=== PATIENT | female | born 1990 | race Caucasian/White ===

== ENCOUNTER 2021-01-23 03:26 | Day surgery (SDC) | payer OTHER ==
[2021-01-23 03:50] VITALS: BMI 33.6
[2021-01-23] MEDS ORDERED: hydrALAZINE 20 MG/ML VIAL SLOW IVP PRN (04:35)
[2021-01-23] MEDS ORDERED: Betamet Acet/Betamet Na Ph 30 MG/5 ML VIAL IM SCH (08:00)
== END 2021-01-23 09:18 | disposition home health service (06) ==
LOC: CSHLD/OP 03:26
PROVIDERS: ATTEND Obstetrics & Gynecology
DX: O46.92 Antepartum hemorrhage, unspecified, second trimester (principal); O32.1XX0 Maternal care for breech presentation, not applicable or unspecified; Z3A.27 27 weeks gestation of pregnancy
CPT/HCPCS: 76815; 87480; 87510; 87660; 96372; 99284; J0702

== ENCOUNTER 2021-01-24 07:35 | Day surgery (SDC) | payer OTHER ==
[2021-01-24] MEDS ORDERED: Betamet Acet/Betamet Na Ph 30 MG/5 ML VIAL IM SCH (09:00)
== END 2021-01-24 08:18 | disposition home or self-care (01) ==
LOC: CSHLD/OP 07:35
PROVIDERS: ATTEND Obstetrics & Gynecology
DX: Z29.8 Encounter for other specified prophylactic measures (principal)
CPT/HCPCS: 96372; 99282

== ENCOUNTER 2021-03-23 05:29 | Inpatient (IN) | payer OTHER ==
[2021-03-23 05:48] VITALS: BMI 35.0
[2021-03-23] MEDS ORDERED: ceFAZolin 2 GM/Dextrose 50 ML IVPB ONE (05:48)
[2021-03-23] MEDS ORDERED: Famotidine/PF 20 mg/2ml Vial SLOW IVP PRN (05:52)
[2021-03-23] MEDS ORDERED: Ondansetron PF 4 MG/2 ML Vial IVP PRN ×3 (05:52→10:04)
[2021-03-23] MEDS ORDERED: Bicitra 30 ML UDCUP PO PRN (05:52)
[2021-03-23] MEDS ORDERED: Promethazine HCl 25 MG/ML VIAL IM PRN ×3 (05:52→10:04)
[2021-03-23] MEDS ORDERED: hydrALAZINE 20 MG/ML VIAL SLOW IVP PRN ×2 (05:52→10:04)
[2021-03-23] MEDS ORDERED: Methylergonovine 0.2 MG/ML VIAL IM PRN ×2 (05:58→10:04)
[2021-03-23] MEDS ORDERED: Misoprostol 200 MCG TAB PR PRN ×2 (05:59→10:04)
[2021-03-23] MEDS ORDERED: Lactated Ringer's 1,000 ML IV SCH (06:00)
[2021-03-23] MEDS ORDERED: ceFAZolin 2 GM/Dextrose 50 ML 2 GM in Premix Bag 1 BAG IVPB SCH (06:00)
[2021-03-23] MEDS ORDERED: Carboprost 250 MCG/ML AMP IM PRN (06:00)
[2021-03-23 06:07] LABS: Hemoglobin 9.8 g/dL (12.0-15.5); Mean Corpuscular HGB CONC 31.1 g/dL (32.0-36.0); Mean Corpuscular Hemoglobin 26.4 pg (27.0-33.0); Mean Corpuscular Volume 84.9 fl (81.6-98.3); Mean Platelet Volume 10.2 fl (7.4-10.4); Platelet Count 231 10x3/uL (150-450); RBC Distribution Width 18.9 % (11.5-14.5); Red Blood Cell (RBC) Count 3.71 10x6/uL (3.90-5.03); White Blood Cell (WBC) Count 12.6 10x3/uL (3.5-10.5)
[2021-03-23] MEDS ORDERED: ePHEDrine Sulfate 50 MG/10 ML VIAL ONE (06:16)
[2021-03-23] MEDS ORDERED: Morphine PF 10 MG/10 ML VIAL ONE (06:16)
[2021-03-23] MEDS ORDERED: Dexamethasone 4 mg/ml Vial ONE (06:16)
[2021-03-23] MEDS ORDERED: Fentanyl 100 MCG/2 ML VIAL ONE (06:16)
[2021-03-23] MEDS ORDERED: Ondansetron PF 4 MG/2 ML Vial ONE (06:16)
[2021-03-23] MEDS ORDERED: Oxytocin 10 UNITS/ML VIAL ONE ×2 (06:20→07:24)
[2021-03-23] MEDS: Lactated Ringer's 1,000 ML IV SCH ×2 (06:51→21:24)
[2021-03-23 06:53] LABS: SARS-CoV-2 NAA Rapid Test Not Detected (NotDetected)
[2021-03-23 06:55] LABS: Hep B Surf Ag Non-Reactive S/CO (NonReactive)
[2021-03-23 06:56] LABS: Syphilis Antibody Nonreactive (Nonreactive); Syphilis Antibody Index 0.09 S/CO (<1.00 Non-Reactive)
[2021-03-23 07:13] LABS: HIV (1/2) Antibody/Antigen Non-Reactive (NonReactive); HIV 1/2 INDEX 0.17 S/CO (<1.00)
[2021-03-23] MEDS ORDERED: Tranexamic Acid 1,000 MG/10 ML VIAL ONE (07:19)
[2021-03-23] MEDS ORDERED: L&D-Morphine 4 MG/ML VIAL SLOW IVP PRN (08:19)
[2021-03-23] MEDS ORDERED: Fentanyl 100 MCG/2 ML VIAL SLOW IVP PRN (08:19)
[2021-03-23] MEDS ORDERED: diphenhydrAMINE 50 MG/ML VIAL IVP PRN (08:19)
[2021-03-23] MEDS ORDERED: Naloxone HCl 0.4 mg/ml Vial IVP PRN ×2 (08:19)
[2021-03-23] MEDS ORDERED: Naloxone HCl 0.4 mg/ml Vial IV PRN (08:19)
[2021-03-23] MEDS ORDERED: Promethazine HCl 25 MG SUPP PR PRN (08:19)
[2021-03-23] MEDS ORDERED: Ondansetron HCl/PF 4 MG/2 ML Vial IVP PRN (08:19)
[2021-03-23] MEDS ORDERED: Hydrocerin (Eucerin) Cream 120 gm Jar TOP PRN (08:19)
[2021-03-23] MEDS ORDERED: Meperidine HCl/PF 25 MG/ML VIAL SLOW IVP PRN (08:19)
[2021-03-23] MEDS ORDERED: Communication Order-Pharmacy FS SCH (08:30)
[2021-03-23] MEDS ORDERED: Ketorolac Tromethamine 30 MG/ML VIAL IVP SCH (08:30)
[2021-03-23] MEDS: Ketorolac Tromethamine 30 MG/ML VIAL IVP PRN ×3 (10:03→23:02)
[2021-03-23] MEDS ORDERED: Measles/Mumps/Rubella 10 MCG/0.5 ML VIAL SC ONE (10:04)
[2021-03-23] MEDS ORDERED: Varicella virus, LIVE 0.5 ML VIAL SC ONE (10:04)
[2021-03-23] MEDS ORDERED: Boostrix 0.5 ML (Tdap) VIAL IM ONE (10:04)
[2021-03-23] MEDS ORDERED: diphenhydrAMINE 25 MG CAP PO PRN (10:04)
[2021-03-23] MEDS ORDERED: Lanolin Ointment 7 GM TUBE TOP PRN (10:04)
[2021-03-23] MEDS ORDERED: Bisacodyl 10 MG SUPP PR PRN (10:04)
[2021-03-23] MEDS ORDERED: NS w/ Oxytocin 30 units 500 ML IV SCH (10:15)
[2021-03-23] MEDS ORDERED: NS w/ Oxytocin 30 units 0 ML ONE (10:18)
[2021-03-23] MEDS ORDERED: HYDROcodone/Acetaminophen 5/325 mg Tablet PO PRN ×2 (20:30)
[2021-03-23] MEDS ORDERED: Zolpidem Tartrate 5 MG TAB PO PRN (21:00)
[2021-03-23] MEDS: Ferrous Sulfate 325 MG TAB PO SCH (21:22)
[2021-03-23] MEDS: Docusate 100 MG CAP PO SCH (21:22)
[2021-03-24 05:05] LABS: Hemoglobin 9.3 g/dL (12.0-15.5); Mean Corpuscular HGB CONC 31.2 g/dL (32.0-36.0); Mean Corpuscular Hemoglobin 27.3 pg (27.0-33.0); Mean Corpuscular Volume 87.4 fl (81.6-98.3); Mean Platelet Volume 10.2 fl (7.4-10.4); Platelet Count 209 10x3/uL (150-450); RBC Distribution Width 18.9 % (11.5-14.5); Red Blood Cell (RBC) Count 3.41 10x6/uL (3.90-5.03); White Blood Cell (WBC) Count 13.4 10x3/uL (3.5-10.5)
[2021-03-24] MEDS: Ketorolac Tromethamine 30 MG/ML VIAL IVP PRN (05:32)
[2021-03-24] MEDS: Ferrous Sulfate 325 MG TAB PO SCH ×2 (08:34→20:55)
[2021-03-24] MEDS: Docusate 100 MG CAP PO SCH ×2 (08:34→20:55)
[2021-03-24] MEDS: Prenatal Vitamin 1 TAB PO SCH (08:35)
[2021-03-24] MEDS: Ibuprofen 800 MG TAB PO SCH ×2 (13:00→20:55)
[2021-03-24] MEDS: Simethicone Chewable 80 MG TAB PO PRN ×2 (13:00→20:55)
[2021-03-25] MEDS: Ibuprofen 800 MG TAB PO SCH (05:31)
[2021-03-25 08:23] VITALS: BP 111/72; TEMP 98.2
[2021-03-25] MEDS: Docusate 100 MG CAP PO SCH (08:26)
[2021-03-25] MEDS: Prenatal Vitamin 1 TAB PO SCH (08:26)
[2021-03-25] MEDS: Ferrous Sulfate 325 MG TAB PO SCH (08:27)
== END 2021-03-25 11:34 | disposition home or self-care (01) | DRG 788 ==
LOC: CSHLD/OP 05:29 → CSHLD 05:50 → CSHPP 11:30
PROVIDERS: ADMIT Obstetrics & Gynecology; ATTEND Obstetrics & Gynecology
PROC: 10D00Z1 Extraction of Products of Conception, Low, Open Approach (ICD-10-PCS; principal; 2021-03-23)
PROC: 0UB90ZZ Excision of Uterus, Open Approach (ICD-10-PCS; 2021-03-23)
PROC: 30233N1 Transfusion of Nonautologous Red Blood Cells into Peripheral Vein, Percutaneous Approach (ICD-10-PCS; 2021-03-23)
DX: O44.13 Complete placenta previa with hemorrhage, third trimester (principal); O24.429 Gestational diabetes mellitus in childbirth, unspecified control; Z3A.34 34 weeks gestation of pregnancy; Z37.0 Single live birth; O34.13 Maternal care for benign tumor of corpus uteri, third trimester; D25.9 Leiomyoma of uterus, unspecified; Z20.822 Contact with and (suspected) exposure to COVID-19
CPT/HCPCS: 36415; 36430; 51702; 85027; 86780; 86850; 86900; 86901; 87340; 87389; 88305; 88307; 99285; J0690; J1100; J1885; J2274; J2405; J2590; J3010; J7120; P9016; U0002